=== PATIENT | female | born 1950 | race Caucasian/White ===

== ENCOUNTER 2020-06-13 14:36 | Emergency (ER) | payer BC ==
--- NOTE | 2020-06-13 15:16 | EDM.PDOC ---
ED HPI GENERAL MEDICAL PROBLEM - General Stated Complaint: DEHYDRATION Time Seen by Provider: 06/13/20 15:05 Source of Information: Reports: Patient History Limitations: Reports: No Limitations - History of Present Illness INITIAL COMMENTS - FREE TEXT/NARRATIVE: 69-year-old female who reports that she was diagnosed with Lyme disease and the latter part of 2015 for the early part of 2017. She reports that it was a delayed diagnosis and she was not treated with any antibiotics for this. She instead sought help through a naturopathic physician and she reports that she has been being treated with natural supplements for the past 3 years. She reports that her symptoms during this time were varied. She reports that she had migratory arthralgias, fatigue, abdominal bloating with diarrhea at times and generalized malaise. She reports that these symptoms seem to come and go and they never really seemed to have improved. Beginning in March of this year she reports that she began to have recent difficulty with doing her activities of daily living and her ability to do these things have progressively declined over the past 3 months. She states beginning about 6 weeks ago she began to have increasing fatigue and difficulty ambulating without assistance. Beginning about 4-5 weeks ago she started having swelling in her legs with tingling sores on her legs and this has progressively worsened with time. Over the past 2 weeks she has found that it is difficult to even stand up or move and she gets short of breath with any of these activities and gets very tired. She continues to have migratory arthralgias and intermittent intestinal symptoms of bloating and diarrhea. Over the past week she has not been able to get out of bed and she has felt extremely weak with near syncope at times and the feeling of shortness of breath with any activity. She reports the sores on her legs are continually weeping and she has skin breakdown in her perineum and sacral area. She has had no nausea or vomiting. She has been eating and drinking normally. She currently has 2/10 level of pain and it is currently in her left shoulder but it had been in her right hip earlier today. She also has bilateral lower leg pain that is an aching and burning type pain. She has had no fevers or chills. No nasal congestion. No trouble swallowing. She has basically been in her house since November 2019 and she has had no exposure to anyone with coronavirus-type symptoms. She has had no cough. No localized weakness or numbness. Over the past week she has had formed bowel movements and she has had no note of blood in her stool. There was no noted blood in her stool or black stools prior to this as well. There are no other associated signs or symptoms. There are no other modifying factors. 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 Surgical history as detailed below.) - Past Surgical History HEENT Surgical History: Reports: Tonsillectomy Social & Family History - Tobacco Use Smoking Status *Q: Never Smoker - Alcohol Use Alcohol Use History: No - Living Situation & Occupation Living situation: Reports: , with Spouse Occupation: Retired ED ROS GENERAL - Review of Systems Review Of Systems: See Below Constitutional: Reports: Weakness, Fatigue, Decreased Appetite, Weight Loss (30 pound weight loss over the past 2 months.) HEENT: Reports: Other (Dry mouth.) Respiratory: Reports: Shortness of Breath. Denies: Cough, Sputum, Hemoptysis Cardiovascular: Reports: Lightheadedness GI/Abdominal: Reports: Decreased Appetite : Reports: No Symptoms (Except decreased urine output) Musculoskeletal: Reports: Other (Migratory body aches and arthralgias. Bilateral leg edema. Bilateral arm edema.) Skin: Reports: Pallor, Wound (Wounds over both lower legs and also scl dperineal skin reakdown.) Neurological: Reports: Weakness (Generalized weakness) Hematologic/Lymphatic: Reports: No Symptoms Immunologic: Reports: No Symptoms ED EXAM, NEURO - Physical Exam Exam: See Below Exam Limited By: No Limitations General Appearance: Alert, Moderate Distress (Does appear to have some increased work of breathing.), Thin, Other (Appear somewhat ill.) Eye Exam: Bilateral Eye: EOMI, Normal Inspection (Sclera are anicteric) Ears: Normal External Exam, Hearing Grossly Normal Nose: Normal Inspection, Normal Mucosa, No Blood Throat/Mouth: Normal Voice, No Airway Compromise, Other (Dry mucous membranes) Head Exam: Atraumatic, Normocephalic Neck: Normal Inspection, Supple, Non-Tender, Full Range of Motion Respiratory/Chest: Lungs Clear, Normal Breath Sounds, Accessory Muscle Use (Slight increased work of breathing.). No: Crackles, Rales, Wheezing Cardiovascular: Normal Peripheral Pulses, Regular Rate, Rhythm, Systolic Murmur (Slight, 1/6) GI/Abdominal: Normal Bowel Sounds, Soft, Non-Tender, No Mass, Other (Scaphoid) Neurological: Alert, Normal Dorsiflexion, CN II-XII Intact, Normal Plantar Flexion, No Motor/Sensory Deficits, Oriented x 3 Back Exam: Normal Inspection, Full Range of Motion Extremities: Normal Capillary Refill, Pedal Edema, Other (Cellulitis noted) Psychiatric: Depressed Mood Skin Exam: Warm, Pallor, Wound/Incision (Multiple wounds on both lower legs that are weeping. Skin breakdown in the sacral and perineal area with erythema.) EKG INTERPRETATION EKG Date: 06/13/20 Time: 15:00 Rhythm: NSR Rate (Beats/Min): 78 [place]: Normal P-Wave: Present QRS: Normal ST-T: Normal QT: Normal Comparison: NA - No Prior EKG Course - Vital Signs Last Recorded V/S: Last Vital Signs Temp 35.8 C L 06/13/20 19:32 Pulse 84 06/13/20 19:32 Resp 16 06/13/20 19:32 BP 83/37 L 06/13/20 19:32 Pulse Ox 82 L 06/13/20 14:36 - Orders/Labs/Meds Orders: Active Orders 24 hr Category Date Time Status EKG Documentation Completion [RC] ASDIRECTED Care 06/13/20 15:38 Active Insert Urinary Catheter [OM.PC] Q24H Care 06/13/20 15:45 Ordered Urinary Catheter Assessment [RC] QSHIFT Care 06/13/20 15:38 Active CULTURE BLOOD [BC] Urgent Lab 06/13/20 15:40 Results CULTURE BLOOD [BC] Urgent Lab 06/13/20 16:15 Results CULTURE URINE [RM] Stat Lab 06/13/20 15:36 Ordered UA W/MICROSCOPIC [URIN] Stat Lab 06/13/20 15:36 Ordered Sodium Chloride 0.9% [Normal Saline] 1,000 ml Med 06/13/20 15:45 Active IV ASDIRECTED Sodium Chloride 0.9% [Saline Flush] Med 06/13/20 15:36 Active 10 ml FLUSH ASDIRECTED PRN Blood Culture x2 Reflex Set [OM.PC] Urgent Oth 06/13/20 15:36 Ordered Peripheral IV Insertion Adult [OM.PC] Routine Oth 06/13/20 15:36 Ordered EKG 12 Lead [EK] Routine Ther 06/13/20 15:36 Ordered Medication Orders Sodium Chloride (Normal Saline) 1,000 mls @ 100 mls/hr IV ASDIRECTED JOSELITO Last Infusion: 06/13/20 19:06 Dose: 100 mls/hr Documented by: Infusion: 06/13/20 16:30 Dose: 999 mls/hr Documented by: Admin: 06/13/20 16:24 Dose: 100 mls/hr Documented by: DARRION Sodium Chloride (Saline Flush) 10 ml FLUSH ASDIRECTED PRN PRN Reason: Keep Vein Open Labs: Laboratory Tests 06/13/20 06/13/20 06/13/20 Range/Units 15:36 15:40 16:15 WBC 32.9 H* (4.5-12.0) X10-3/uL RBC 3.00 L (3.23-5.20) x10(6)uL Hgb 4.8 L* (11.5-15.5) g/dL Hct 16.9 L* D (30.0-51.3) % MCV 56.4 L (80-96) fL MCH 15.9 L (27.7-33.6) pg MCHC 28.3 L (32.2-35.4) g/dL RDW 23.7 H (11.5-15.5) % Plt Count 361 (125-369) X10(3)uL MPV 7.0 L (7.4-10.4) fL Add Manual Diff Yes Neutrophils % (Manual) 94 H (46-82) % Band Neutrophils % 2 (0-6) % Lymphocytes % (Manual) 3 L (13-37) % Monocytes % (Manual) 2 L (4-12) % Toxic Granulation Moderate H (NOT SEEN) Hypochromasia Marked H Anisocytosis Moderate H Microcytosis Moderate H Tear Drop Cells Few PT (9.0-11.1) sec INR (1.00-1.24) POC VBG pH 7.35 (7.32-7.43) pH Units POC VBG pCO2 33 L (41-51) mmHg POC VBG HCO3 18 L (21-29) mmol/L VBG Base Excess -7 L (-2-3) mmol/L O2 Delivery Device Room air Sodium 128 L (135-145) mmol/L Potassium 4.0 (3.5-5.3) mmol/L Chloride 97 L (100-110) mmol/L Carbon Dioxide 18 L (21-32) mmol/L BUN 48 H (7-18) mg/dL Creatinine 1.4 H (0.55-1.02) mg/dL Est Cr Clr Drug Dosing TNP Estimated GFR (MDRD) 38 L (>60) BUN/Creatinine Ratio 34.3 H (9-20) Glucose 100 (80-116) mg/dL Lactic Acid (0.4-2.0) mmol/L Calcium 8.1 L (8.6-10.2) mg/dL Magnesium 1.7 L (1.8-2.5) mg/dL Total Bilirubin 0.3 (0.1-1.3) mg/dL AST 34 H (5-25) IU/L ALT 26 (12-36) U/L Alkaline Phosphatase 170 H (56-112) IU/L Troponin I (4.0-60.3) pg/mL C-Reactive Protein (0.5-0.9) mg/dL NT-Pro-B Natriuret Pep (<=125) pg/mL Total Protein 5.7 L (6.0-8.0) g/dL Albumin 1.3 L* (3.2-4.6) g/dL Globulin 4.4 g/dL Albumin/Globulin Ratio 0.3 TSH, Ultra Sensitive (0.36-3.74) IU/mL SARS-CoV-2 RNA (NALLELY) (NEGATIVE) Blood Type Gel Antibody Screen Crossmatch 06/13/20 06/13/20 06/13/20 Range/Units 16:15 16:15 16:15 WBC (4.5-12.0) X10-3/uL RBC (3.23-5.20) x10(6)uL Hgb (11.5-15.5) g/dL Hct (30.0-51.3) % MCV (80-96) fL MCH (27.7-33.6) pg MCHC (32.2-35.4) g/dL RDW (11.5-15.5) % Plt Count (125-369) X10(3)uL MPV (7.4-10.4) fL Add Manual Diff Neutrophils % (Manual) (46-82) % Band Neutrophils % (0-6) % Lymphocytes % (Manual) (13-37) % Monocytes % (Manual) (4-12) % Toxic Granulation (NOT SEEN) Hypochromasia Anisocytosis Microcytosis Tear Drop Cells PT 11.6 H (9.0-11.1) sec INR 1.08 (1.00-1.24) POC VBG pH (7.32-7.43) pH Units POC VBG pCO2 (41-51) mmHg POC VBG HCO3 (21-29) mmol/L VBG Base Excess (-2-3) mmol/L O2 Delivery Device Sodium (135-145) mmol/L Potassium (3.5-5.3) mmol/L Chloride (100-110) mmol/L Carbon Dioxide (21-32) mmol/L BUN (7-18) mg/dL Creatinine (0.55-1.02) mg/dL Est Cr Clr Drug Dosing Estimated GFR (MDRD) (>60) BUN/Creatinine Ratio (9-20) Glucose (80-116) mg/dL Lactic Acid 1.7 (0.4-2.0) mmol/L Calcium (8.6-10.2) mg/dL Magnesium (1.8-2.5) mg/dL Total Bilirubin (0.1-1.3) mg/dL AST (5-25) IU/L ALT (12-36) U/L Alkaline Phosphatase (56-112) IU/L Troponin I 114.9 H* (4.0-60.3) pg/mL C-Reactive Protein 21.2 H* (0.5-0.9) mg/dL NT-Pro-B Natriuret Pep 2903 H* (<=125) pg/mL Total Protein (6.0-8.0) g/dL Albumin (3.2-4.6) g/dL Globulin g/dL Albumin/Globulin Ratio TSH, Ultra Sensitive (0.36-3.74) IU/mL SARS-CoV-2 RNA (NALLELY) (NEGATIVE) Blood Type Gel Antibody Screen Crossmatch 06/13/20 06/13/20 06/13/20 Range/Units 16:15 16:15 18:50 WBC (4.5-12.0) X10-3/uL RBC (3.23-5.20) x10(6)uL Hgb (11.5-15.5) g/dL Hct (30.0-51.3) % MCV (80-96) fL MCH (27.7-33.6) pg MCHC (32.2-35.4) g/dL RDW (11.5-15.5) % Plt Count (125-369) X10(3)uL MPV (7.4-10.4) fL Add Manual Diff Neutrophils % (Manual) (46-82) % Band Neutrophils % (0-6) % Lymphocytes % (Manual) (13-37) % Monocytes % (Manual) (4-12) % Toxic Granulation (NOT SEEN) Hypochromasia Anisocytosis Microcytosis Tear Drop Cells PT (9.0-11.1) sec INR (1.00-1.24) POC VBG pH (7.32-7.43) pH Units POC VBG pCO2 (41-51) mmHg POC VBG HCO3 (21-29) mmol/L VBG Base Excess (-2-3) mmol/L O2 Delivery Device Sodium (135-145) mmol/L Potassium (3.5-5.3) mmol/L Chloride (100-110) mmol/L Carbon Dioxide (21-32) mmol/L BUN (7-18) mg/dL Creatinine (0.55-1.02) mg/dL Est Cr Clr Drug Dosing Estimated GFR (MDRD) (>60) BUN/Creatinine Ratio (9-20) Glucose (80-116) mg/dL Lactic Acid (0.4-2.0) mmol/L Calcium (8.6-10.2) mg/dL Magnesium (1.8-2.5) mg/dL Total Bilirubin (0.1-1.3) mg/dL AST (5-25) IU/L ALT (12-36) U/L Alkaline Phosphatase (56-112) IU/L Troponin I (4.0-60.3) pg/mL C-Reactive Protein (0.5-0.9) mg/dL NT-Pro-B Natriuret Pep (<=125) pg/mL Total Protein (6.0-8.0) g/dL Albumin (3.2-4.6) g/dL Globulin g/dL Albumin/Globulin Ratio TSH, Ultra Sensitive 8.52 H* (0.36-3.74) IU/mL SARS-CoV-2 RNA (NALLELY) Negative (NEGATIVE) Blood Type A POSITIVE Gel Antibody Screen Negative Crossmatch See Detail Meds: Medications Generic Name Dose Route Start Last Admin Trade Name Freq PRN Reason Stop Dose Admin Sodium Chloride 1,000 mls @ 100 mls/hr 06/13/20 15:45 06/13/20 19:06 Normal Saline IV Infused ASDIRECTED JOSELITO Infusion Sodium Chloride 10 ml 06/13/20 15:36 Saline Flush FLUSH ASDIRECTED PRN Keep Vein Open Discontinued Medications Generic Name Dose Route Start Last Admin Trade Name Freq PRN Reason Stop Dose Admin Acetaminophen 1,000 mg 06/13/20 17:09 06/13/20 17:45 Tylenol Extra Strength PO 06/13/20 17:10 1,000 mg ONETIME ONE Administration Ceftriaxone Sodium 1 gm 06/13/20 17:39 06/13/20 19:00 Rocephin IVPUSH 06/13/20 17:40 1 gm ONETIME ONE Administration Sodium Chloride 500 mls @ 999 mls/hr 06/13/20 15:41 06/13/20 15:50 Normal Saline IV 06/13/20 16:11 999 mls/hr .BOLUS ONE Administration Sodium Chloride 500 mls @ 999 mls/hr 06/13/20 18:23 Normal Saline IV 06/13/20 18:53 .BOLUS ONE Morphine Sulfate 2 mg 06/13/20 17:37 06/13/20 18:59 Morphine IVPUSH 06/13/20 17:38 2 mg ONETIME ONE Administration Ondansetron HCl 4 mg 06/13/20 17:37 06/13/20 19:00 Zofran IVPUSH 06/13/20 17:38 4 mg ONETIME ONE Administration - Radiology Interpretation Free Text/Narrative:: Portable chest x-ray showed evidence of right upper lobe consolidation but there was a masslike structure in the right upper hilar area. - Re-Assessments/Exams Free Text/Narrative Re-Assessment/Exam: 06/13/20 17:30: The patient has remained stable while in the emergency department with blood pressures in the 80-90 systolic range. Her respiratory status has remained stable as well. She has not been able provide us with a urine and she will not allow us to place a Tuttle catheter. Her blood tests arm markedly abnormal with a severe anemia (a hemoglobin of 4.8) and a white blood cell count 33,000. Her stool for Hemoccult was negative. She also has evidence of dehydration. She has a mild elevation in her troponin and an elevation in her proBNP. She also has an elevation in her TSH and she has an albumin of 1.3. Chest x-ray shows evidence of pneumonia but there is a masslike area that I felt was concerning for malignancy. She has begun to develop bilateral leg pain that is becoming quite severe. She is rating it as a 10/10. Her blood pressure has been low and give her pain medication but will be cautious with this. The patient has evidence of dehydration but also evidence of anasarca as well. S ystems hypertension and severe anemia. She will need multiple specialty services to take part in her care that are not available at [facility]. She will also need a higher level of monitoring than is available at [facility]. I will discuss this with the patient. 06/13/20 17:45: I discussed all of the laboratory findings and x-ray findings with the patient. I answered her questions. To the questions of her as well. They understand that she will need to be transferred to a higher level of care and they have instructed me to discuss the case with the doctors at [facility] in [place]. 06/13/20 17:55: I have discussed the patient's case with Dr. Bernard, hospitalist at [facility] in [place], and he will accept the patient in transfer. Blood has been typed and screened and they are working on cross-matching units of PRBCs and if one is available prior to transfer we will begin transfusing 1 unit. 06/13/20 19:45: EMS is here to transport the patient. A rapid Covid has been ordered and came back negative. The patient has received 2 mg of morphine IV and her blood pressure A little bit to the 70-80 range but has stabilized. She is getting 1 unit of packed red blood cells now. The patient will be transferred to [facility] via [facility] ambulance for direct admission soon. Departure - Departure Time of Disposition: 19:59 Disposition: DC/Tfer to [facility] 02 Condition: Critical (Guarded) Clinical Impression: Mass of right lung, Anasarca, Severe anemia, Hypoalbuminemia Right upper lobe pneumonia Qualifiers: Pneumonia type: due to unspecified organism Qualified Code(s): J18.9 - Pneumonia, unspecified organism Hypotension Qualifiers: Hypotension type: unspecified hypotension type Qualified Code(s): I95.9 - Hypotension, unspecified - Discharge Information Referrals: PCP,None [Ordering Only Provider] - Sepsis Event Note (ED) - Focused Exam Vital Signs: Vital Signs Temp Temp Pulse Resp BP Pulse Ox 06/13/20 19:32 35.8 C L 84 16 83/37 L 06/13/20 19:17 35.8 C L 84 16 101/50 L 06/13/20 14:36 35.9 C L 77 16 92/56 L 82 L - My Orders Last 24 Hours: My Active Orders 06/13/20 15:36 CULTURE URINE [RM] Stat UA W/MICROSCOPIC [URIN] Stat Sodium Chloride 0.9% [Saline Flush] 10 ml FLUSH ASDIRECTED PRN Blood Culture x2 Reflex Set [OM.PC] Urgent Peripheral IV Insertion Adult [OM.PC] Routine EKG 12 Lead [EK] Routine 06/13/20 15:38 EKG Documentation Completion [RC] ASDIRECTED Urinary Catheter Assessment [RC] QSHIFT 06/13/20 15:40 CULTURE BLOOD [BC] Urgent 06/13/20 15:45 Insert Urinary Catheter [OM.PC] Q24H Sodium Chloride 0.9% [Normal Saline] 1,000 ml IV ASDIRECTED 06/13/20 16:15 CULTURE BLOOD [BC] Urgent - Assessment/Plan Last 24 Hours: My Active Orders 06/13/20 15:36 CULTURE URINE [RM] Stat UA W/MICROSCOPIC [URIN] Stat Sodium Chloride 0.9% [Saline Flush] 10 ml FLUSH ASDIRECTED PRN Blood Culture x2 Reflex Set [OM.PC] Urgent Peripheral IV Insertion Adult [OM.PC] Routine EKG 12 Lead [EK] Routine 06/13/20 15:38 EKG Documentation Completion [RC] ASDIRECTED Urinary Catheter Assessment [RC] QSHIFT 06/13/20 15:40 CULTURE BLOOD [BC] Urgent 06/13/20 15:45 Insert Urinary Catheter [OM.PC] Q24H Sodium Chloride 0.9% [Normal Saline] 1,000 ml IV ASDIRECTED 06/13/20 16:15 CULTURE BLOOD [BC] Urgent
[2020-06-13] MEDS ORDERED: Sodium Chloride 0.9% 10 ML Syringe FLUSH PRN (15:36)
[2020-06-13] MEDS ORDERED: Sodium Chloride 0.9% 500 ML IV ONE ×2 (15:41→18:23)
[2020-06-13] MEDS ORDERED: Sodium Chloride 0.9% 1,000 ML IV SCH (15:45)
[2020-06-13 16:01] LABS: BASE EXCESS VENOUS,POC -7 mmol/L (-2-3); HCO3 VENOUS,POC 18 mmol/L (21-29); PCO2 VENOUS,POC 33 mmHg (41-51); PH VENOUS,POC 7.35 pH Units (7.32-7.43)
--- NOTE | 2020-06-13 17:04 | CR ---
INDICATION: Short of breath. CHEST ONE VIEW: An AP upright view of the chest was obtained 06/13/20 - no comparisons. The heart did not appear grossly enlarged. Calcifications noted in the arch of the aorta. Overlying EKG leads are noted. Dense infiltration is noted in the right midlung field which appears to be in the right upper lobe with minimal pleuritis suggested at the minor fissure. Findings are most likely on the basis of pneumonia and pleuritis in that area with consolidation. No other acute process was suggested. MTDD
[2020-06-13] MEDS ORDERED: Acetaminophen 500 MG Tab PO ONE (17:09)
[2020-06-13] MEDS ORDERED: Ondansetron 4 MG/2 ML SDV IVPUSH ONE (17:37)
[2020-06-13] MEDS ORDERED: Morphine 2 MG/ML SYRINGE IVPUSH ONE (17:37)
[2020-06-13] MEDS ORDERED: cefTRIAXone 2 GM Vial IVPUSH ONE (17:39)
== END 2020-06-13 19:59 ==
LOC: FB.ED 14:36
DX: J18.9 Pneumonia, unspecified organism (principal); I95.9 Hypotension, unspecified; E88.09 Other disorders of plasma-protein metabolism, not elsewhere classified; D64.9 Anemia, unspecified; R91.8 Other nonspecific abnormal finding of lung field; R60.1 Generalized edema; Z20.828 Contact with and (suspected) exposure to other viral communicable diseases
CPT/HCPCS: 36415; 36430; 71045; 80053; 82270; 83605; 83735; 83880; 84443; 84484; 85025; 85610; 86140; 86850; 86900; 86901; 86920; 86922; 87040; 93005; 96374; 96375; 99285-25; A9270-GY; J0696; J2270; J2405; J7030; J7040; P9016; U0002